=== PATIENT | female | born 1970 | race Caucasian/White ===

== ENCOUNTER 2016-10-22 15:46 | Emergency (ER) | payer BC ==
[~2016-10-22] VITALS: Ht 162.6 cm; Wt 77.0 kg
[2016-10-22 16:02] VITALS: Ht 162.6 cm; Wt 77.0 kg
--- NOTE | 2016-10-22 17:33 | ERA ---
ER Documentation Chief Complaint Date/Time DATE: 10/22/16 TIME: 17:33 Chief Complaint Pt with R knee pain, swelling to R knee wound X 15 days. HPI The patient is a 46-year-old female, presenting to the ER because of right knee pain for 15 days. She was seen at [facility] and had x- ray done. He came to the ER because of a small lesion that is getting bigger and redder with minimal discharge. He denies fever, chills, neck pain, dyspnea , abdominal pain, vomiting, dysuria, diarrhea, calf pain. He does not smoke, drinks socially Past medical/surgical history: None ROS All systems reviewed and are negative except as per history of present illness. Medications Home Meds Active Scripts Bacitracin (Bacitracin) 1 Each Packet, 1 EACH TP BID, #14 PACKET Prov:SANTOSH CHAVIS MD 10/22/16 Sulfamethoxazole-Trimethoprim* (Bactrim* DS) 800-160 Mg Tab, 1 TAB PO BID for 10 Days, TAB Prov:SANTOSH CHAVIS MD 10/22/16 Cephalexin* (Keflex*) 500 Mg Capsule, 500 MG PO QID for 10 Days, CAP Prov:SANTOSH CHAVIS MD 10/22/16 Physical Exam Vitals Vital Signs Date Time Temp Pulse Resp B/P Pulse Ox O2 Delivery O2 Flow Rate FiO2 10/22/16 16:02 98.4 72 16 140/91 100 Physical Exam Const: No acute distress. Head: Atraumatic. Eyes: Normal Conjunctiva. ENT: Normal External Ears, Nose and Mouth. Neck: Full range of motion. No meningismus. Resp: Clear to auscultation bilaterally. Cardio: Regular rate and rhythm, no murmurs. Abd: Soft, non distended, normal bowel sounds, non tender. Skin: No petechiae or rashes. Back: No midline or flank tenderness. Ext: Right knee with a small lesion with crust, minimal erythema, minimal discharge, no calf tenderness Neur: Awake and alert. No focal deficit Psych: Normal Mood and Affect. Procedures/MDM MEDICAL MAKING DECISION: The patient is a 46-year-old female, presenting with right knee cellulitis. The differential diagnoses considered include but are not limited to abscess, fracture, DVT Departure Diagnosis: Primary Impression: Cellulitis Condition: Good Comments The wound was cleaned with normal saline and dressed with bacitracin. Addition with bacitracin, Bactrim DS, Keflex I discussed the findings with the patient. I advised the patient to follow-up with the primary physician in about 1-2 days, sooner if needed and return if any concern. The patient's blood pressure was elevated (>120/80) but appears stable without evidence of hypertension emergency or urgency. The patient was counseled about the risks of hypertension and urged to pursue outpatient monitoring and therapy within a week with their primary care physician. SANTOSH CAHVIS MD Oct 22, 2016 17:33
[2016-10-22] MEDS ORDERED: CEPH-443 PO (17:46)
[2016-10-22] MEDS ORDERED: BACTDS PO (17:46)
[2016-10-22] MEDS ORDERED: BACI1PAC3 TP (17:47)
== END 2016-10-22 17:56 | disposition home or self-care (01) ==
LOC: FTE 15:46
DX: L03.115 Cellulitis of right lower limb (principal)
CPT/HCPCS: 99284